=== PATIENT | male | born 1990 | race Hispanic/Latino ===

== ENCOUNTER 2016-12-02 16:33 | Emergency (ER) | payer OTHER ==
[~2016-12-02] VITALS: Ht 182.9 cm; Wt 1.3 kg
[~2016-12-02 16:33] MED LIST: FERR-74 PO; LEVO750T9 PO; METR250T PO
[2016-12-02 16:42] VITALS: BP 142/96; PULSE 83; RESP 15; O2SAT 99
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
[2016-12-02] MEDS ORDERED: Lidocaine 1%-Epi 1:100,000 10 mL Inj SUBQ ONE (17:10)
[2016-12-02] MEDS ORDERED: TdaP Vaccine 0.5 mL Inj IM ONE (17:10)
[2016-12-02] MEDS ORDERED: Lidocaine 1%-Epi 1:100,000 20 mL Inj ONE (17:13)
[2016-12-02 17:55] VITALS: BP 155/90; PULSE 96; O2SAT 98
[2016-12-02 18:04] VITALS: BP 155/90; PULSE 96; RESP 15; O2SAT 98
== END 2016-12-02 18:04 | disposition home or self-care (01) ==
LOC: SED 16:33
DX: S01.81XA Laceration without foreign body of other part of head, initial encounter (principal); Y04.0XXA Assault by unarmed brawl or fight, initial encounter; Y93.89 Activity, other specified; Y92.9 Unspecified place or not applicable; Y99.8 Other external cause status; Z23 Encounter for immunization